=== PATIENT | female | born 1985 | race American Indian/Alaskan Native ===

== ENCOUNTER 2020-09-17 16:42 | Emergency (ER) | payer SELFPAY ==
[2020-09-17 16:51] VITALS: BP 156/95
== END 2020-09-17 17:30 | disposition left against medical advice (07) ==
LOC: ED 16:42
DX: R07.9 Chest pain, unspecified (principal); Z53.21 Procedure and treatment not carried out due to patient leaving prior to being seen by health care provider
CPT/HCPCS: 93005